=== PATIENT | male | born 1995 | race Caucasian/White ===

== ENCOUNTER 2023-01-28 18:18 | Emergency (ER) | payer SELFPAY ==
[2023-01-28 18:20] VITALS: BP 152/100; PULSE 76; RESP 20; TEMP 36.8; O2SAT 100; BMI 29.0
--- NOTE | 2023-01-28 18:29 | XR_ITS ---
PROCEDURE INFORMATION: Exam: XR Left Hand Exam date and time: 01/28/2023 6:39 PM Age: 27 years old Clinical indication: Injury or trauma; Other: Large door smashed hand; Blunt trauma (contusions or hematomas); Left; Additional info: Pain TECHNIQUE: Imaging protocol: Radiologic exam of the left hand. Views: 3 or more views. COMPARISON: No relevant prior studies available. FINDINGS: Bones/joints: There is a transverse fracture which transects the proximal metaphysis of the 2nd distal phalanx. No definite extension of the fracture line through the articular cortex at the 2nd D IP joint. The fracture is most clearly seen on lateral series 3. The fracture appears either nondisplaced or possibly incomplete. The bones otherwise appear intact and normally aligned. No arthritic deformities. Soft tissues: Soft tissue swelling.No radiopaque foreign bodies. No pathologic soft tissue calcification. IMPRESSION: Acute fracture of the 2nd distal phalanx as detailed above.
--- NOTE | 2023-01-28 18:47 | EXP.UTC ---
Discharge Plan Disposition Patient Disposition: Home, Self-Care Condition: Good Prescriptions Prescriptions: New cephalexin 500 mg capsule 500 mg PO BID 5 Days Qty: 10 0RF Referrals Follow up/Referrals: Provider,Referral, MD [Primary Care Provider] - See instructions Activity Restrictions/Add. Instructions Additional Instructions/Restrictions: Please follow-up with plastic surgery on Wednesday. They should be calling to schedule an appointment. Please keep splint clean dry and intact. Please keep finger fully extended in splint. Please take antibiotics as prescribed. Clinical Impressions Clinical Impression: Open fracture of finger of left hand Instructions Patient Instructions: DI for Laceration Repair Discharge ED Provider: Toi Yeh [facility] General Chief complaint: Wound/Laceration Stated complaint: AO08/16 LT index finger inj Time Seen by Provider: 01/28/23 18:47 History of Present Illness Provider Complaint: He states that he got his left index finger closed in a gate yesterday. Since then he has had pain, swelling and bruising of the end of that finger. His nail bed is bruised also. Related Data Previous Rx's Medication Instructions Recorded cephalexin 500 mg capsule 500 mg PO BID 5 days #10 caps 01/28/23 Allergies Allergy/AdvReac Type Severity Reaction Status Date / Time ampicillin Allergy Verified 01/28/23 19:44 [facility] Disclaimer: The information contained in this section may have been updated after the patient was seen, as this information can be updated by other users. Social History Smoking Status: Never smoker alcohol intake: never current occupational status: employed Travel in the last 8 weeks: None ROS Obtained: Yes All systems reviewed & no additional complaints except as documented Constitutional Constitutional: Denies chills and Denies fever(s) Eyes Eyes: Denies eye discharge ENT Ears, Nose, Mouth, and Throat: Denies dizziness, Denies otalgia and Denies sore throat Cardiovascular Cardiovascular: Denies chest pain Respiratory Respiratory: Denies shortness of breath, Denies chest congestion, Denies cough, Denies stridor and Denies wheezing Gastrointestinal Gastrointestingal: Denies nausea or vomiting Musculoskeletal Musculoskeletal: Reports as per HPI Integumentary/Breasts Skin/Breast: Reports as per HPI Neurologic Neurologic: Denies dizziness and Denies paresthesias Allergic/Immunologic Allergic/Immunologic: Denies wheezing Physical Exam General General appearance: alert and in no apparent distress Head Head exam: atraumatic, normocephalic and normal inspection Eye Eye exam: Present normal appearance, PERRL and EOMI ENT ENT exam: Present normal exam, normal oropharynx, mucous membranes moist, TM's normal bilaterally and normal external ear exam Neck Neck exam: Present normal inspection, full ROM and trachea midline; Absent meningismus or lymphadenopathy Chest Chest inspection: Present normal inspection and symmetric chest wall rise; Absent tenderness Respiratory Respiratory exam: Present normal lung sounds bilaterally; Absent respiratory distress Cardiovascular Cardiovascular exam: Present regular rate and normal rhythm; Absent JVD Abdominal Exam Abdominal exam: Present soft and normal bowel sounds; Absent distention, tenderness or guarding Extremities Exam Extremities exam: Present normal capillary refill; Absent calf tenderness Expanded Upper Extremity Exam Left: Forearm/Wrist exam: Present normal inspection and full ROM; Absent tenderness Hand exam: Present tenderness, swelling and subungual hematoma; Absent abrasion, laceration, skin avulsion, ecchymosis, deformity, crepitus, dislocation, erythema, amputation or nail avulsion Hand L/R back image: 1. area of bruising and swelling Back Exam Back exam: Present normal inspection; Absent tenderness Neurological Exam Neurological exam: Present alert and oriented X3 P
[2023-01-28 19:42] VITALS: BP 144/87; PULSE 77; RESP 16; TEMP 36.6; O2SAT 100; BMI 28.9
--- NOTE | 2023-01-28 19:45 | PC.NURSE ---
On phone with [facility] re: transfer
--- NOTE | 2023-01-28 19:53 | PC.NURSE ---
ED doctore on phone with
--- NOTE | 2023-01-28 21:16 | PC.NURSE ---
Assisted Dr Abreu with splinting pts finger in correct position. Wrapped finger with non adherent dressing and then placed in large finger splint and coban. Pt given instructions on care.
[2023-01-28 21:23] VITALS: BP 134/75; PULSE 71; RESP 16; TEMP 36.6; O2SAT 100
--- NOTE | 2023-01-28 23:31 | HMH.EDGENADL ---
Discharge Plan Disposition Patient Disposition: Home, Self-Care Condition: Good Prescriptions Prescriptions: New cephalexin 500 mg capsule 500 mg PO BID 5 Days Qty: 10 0RF Referrals Follow up/Referrals: Provider,Referral, [Primary Care Provider] - See instructions Activity Restrictions/Add. Instructions Additional Instructions/Restrictions: Please follow-up with [facility] plastic surgery on Wednesday. They should be calling to schedule an appointment. Please keep splint clean dry and intact. Please keep finger fully extended in splint. Please take antibiotics as prescribed. Clinical Impressions Clinical Impression: Open fracture of finger of left hand, Mallet finger of left hand Instructions Patient Instructions: DI for Laceration Repair Discharge ED Provider: Toi Yeh General Adult HPI General Chief complaint: Wound/Laceration Stated complaint: AO08/16 LT index finger inj Time Seen by Provider: 01/28/23 18:47 Mode of Arrival: Ambulatory Source of Information: Patient Limitations: No Limitations Description of Symptoms (Recalled from ER Triage Doc. by RN): Patient reports smashing his finger in a gate yesterday. History of Present Illness HPI narrative: 27-year-old male previously healthy, not up-to-date on tetanus presents with injury to his left hand. He reports that he smashed his finger in a gate yesterday. He has been unable to fully extend the left index finger since that time. He reports that he thinks he was able to see the bone at the base of the fingernail. Reports worsening pain and swelling since that time. They washed it out with alcohol but have not seen any other care. Patient was initially seen in urgent care and transferred to ED for further evaluation. Related Data Previous Rx's Medication Instructions Recorded cephalexin 500 mg capsule 500 mg PO BID 5 days #10 caps 01/28/23 Allergies Allergy/AdvReac Type Severity Reaction Status Date / Time ampicillin Allergy Verified 01/28/23 19:44 [facility] Disclaimer: The information contained in this section may have been updated after the patient was seen, as this information can be updated by other users. Social History (Updated 02/08/23 @ 20:35 by Toi Yeh APRN) Smoking Status: Never smoker alcohol intake: never current occupational status: employed Travel in the last 8 weeks: None ROS Obtained: Yes All systems reviewed & no additional complaints except as documented Physical Exam General General appearance: alert and in no apparent distress Head Head exam: atraumatic and normocephalic Eye Eye exam: Present normal appearance, PERRL and EOMI ENT ENT exam: Present normal oropharynx and normal external ear exam Neck Neck exam: Present normal inspection and full ROM Chest Chest inspection: Present normal inspection and symmetric chest wall rise; Absent tenderness Respiratory Respiratory exam: Present normal lung sounds bilaterally; Absent respiratory distress Cardiovascular Cardiovascular exam: Present regular rate and normal rhythm Abdominal Exam Abdominal exam: Present soft; Absent distention, tenderness or guarding Extremities Exam Extremities exam: Present other (Left hand: Erythema and swelling of the left second digit from the PIP joint distally. Abrasion/laceration over the volar and dorsal surface of the distal phalanx. Patient unable to fully extend the DIP of the second digit concerning for fracture/tendon rupture) Back Exam Back exam: Present normal inspection; Absent tenderness Neurological Exam Neurological exam: Present alert and oriented X3; Absent motor sensory deficit Psychiatric Psychiatric exam: Present normal affect and normal mood Skin Skin exam: Present warm, dry and normal color Lymphatic Lymphatic Findings: no adenopathy Medical Decision Making Medical Records Medical records reviewed: Yes I reviewed the patient's medical records. Yoni Inquiry Pt receiving controlled substance:
== END 2023-01-28 21:24 | disposition home or self-care (01) ==
LOC: UTC 18:26 → ER 19:24
PROVIDERS: Emergency Provider Nurse Practitioner Family
DX: S62.631B Displaced fracture of distal phalanx of left index finger, initial encounter for open fracture (principal); M20.012 Mallet finger of left finger(s); W23.0XXA Caught, crushed, jammed, or pinched between moving objects, initial encounter; Z23 Encounter for immunization
CPT/HCPCS: 73130; 90715; 96365; 96372; 96375; 99284